=== PATIENT | female | born 1955 | race Caucasian/White ===

== ENCOUNTER → 2016-12-05 | Outpatient (CLI) | payer OTHER ==
--- NOTE | 2016-12-05 13:05 | MM ---
Reason for exam: follow-up at short interval from prior study. Last mammogram was performed 7 months ago. History: Patient is postmenopausal. Family history of breast cancer in aunt at age 54, breast cancer in grandmother at age 60, and breast cancer in aunt at age 50. Physical Findings: Nurse did not find any significant physical abnormalities on exam. MG Diagnostic Mammo RT w CAD CC and MLO view(s) were taken of the right breast. Prior study comparison: April 25, 2016, right breast MG work up mamm w CAD RT. April 23, 2016, bilateral MG screening mammo w CAD. There are scattered fibroglandular densities. There is no discrete abnormality. No significant new findings when compared with previous films. These results were verbally communicated with the patient and result sheet given to the patient on 12/05/16. ASSESSMENT: Negative, BI-RAD 1 RECOMMENDATION: Return to routine screening mammogram schedule for both breasts. Back on schedule 2016.
== END ==
LOC: RADMAMWWP 11:05
PROVIDERS: ATTEND Family Medicine Addiction Medicine
DX: R92.8 Other abnormal and inconclusive findings on diagnostic imaging of breast (principal)

== ENCOUNTER → 2020-12-04 | Outpatient (CLI) | payer OTHER ==
--- NOTE | 2020-12-05 10:30 | MM ---
Reason for exam: additional evaluation requested from prior study. Last mammogram was performed 4 years ago. History: Patient is postmenopausal. Family history of breast cancer in aunt at age 54, breast cancer in grandmother at age 60, and breast cancer in aunt at age 50. Took hormonal contraceptives for 5 years beginning at age 20. Physical Findings: Nurse did not find any significant physical abnormalities on exam. MG 3D Diag Mammo W/Cad OJ Bilateral CC and MLO view(s) were taken. Prior study comparison: December 05, 2016, right breast MG diagnostic mammo RT w CAD. April 25, 2016, right breast MG work up mamm w CAD RT. The breast tissue is heterogeneously dense. This may lower the sensitivity of mammography. Benign calcifications. There is chronic nodularity in the right breast, stable. These results were verbally communicated with the patient and result sheet given to the patient on 12/04/20. ASSESSMENT: Benign, BI-RAD 2 RECOMMENDATION: Routine screening mammogram of both breasts in 1 year.
--- NOTE | 2020-12-05 10:32 | USB ---
Reason for exam: clinical finding. History: Patient is postmenopausal. Family history of breast cancer in aunt at age 54, breast cancer in grandmother at age 60, and breast cancer in aunt at age 50. Took hormonal contraceptives for 5 years beginning at age 20. US Breast Limited LT Left limited breast ultrasound including focal area of concern, retroareolar and axilla demonstrates no cystic or solid lesion seen. These results were verbally communicated with the patient and result sheet given to the patient on 12/04/20. ASSESSMENT: Benign, BI-RAD 2 RECOMMENDATION: Routine screening mammogram of both breasts in 1 year. Manage patient on a clinical basis.
== END | disposition home or self-care (01) ==
LOC: RADMAMWWP 14:35
PROVIDERS: ATTEND Family Medicine Addiction Medicine
DX: R92.2 Inconclusive mammogram (principal); R92.1 Mammographic calcification found on diagnostic imaging of breast
CPT/HCPCS: 77066; 76642; G0279; 77062

== ENCOUNTER → 2021-12-19 | Outpatient (CLI) | payer MEDICARE, OTHER ==
--- NOTE | 2021-12-19 14:05 | XR ---
EXAMINATION TYPE: XR chest 2V DATE OF EXAM: 12/19/2021 COMPARISON: 09/29/2015 INDICATION: Presurgical clearance TECHNIQUE: Frontal and lateral views of the chest are obtained. FINDINGS: The heart size is normal. The pulmonary vasculature is normal. The lungs are clear. IMPRESSION: 1. No acute pulmonary process.
[2021-12-19 16:28] LABS: Partial Thromboplastin Time 22.6 sec (22.0-30.0); Prothrombin Time 10.6 sec (9.0-12.0)
[2021-12-19 22:22] LABS: Basophils # (A) 0.03 X 10*3/uL (0.00-0.10); Basophils % (A) 0.4 %; Eosinophils # (A) 0.03 X 10*3/uL (0.04-0.35); Eosinophils % (A) 0.4 %; HCT 37.4 % (37.2-46.3); HGB 12.1 g/dL (12.0-15.0); Immature Grans, Automated 0.4 %; Lymphocytes # (A) 1.71 X 10*3/uL (0.90-5.00); Lymphocytes % (A) 24.3 %; MCH 29.5 pg (27.0-32.0); MCHC 32.4 g/dL (32.0-37.0); MCV 91.2 fL (80.0-97.0); Mean Platelet Volume 10.9 fL (9.5-12.2); Monocytes # (A) 0.56 X 10*3/uL (0.20-1.00); NRBC Per 100 WBC 0 /100 WBCS (0.0-0.0); Neutrophils # (A) 4.68 X 10*3/uL (1.80-7.70); Neutrophils % (A) 66.5 %; Platelet Count 204 X 10*3/uL (140-440); RDW 14.3 % (11.5-14.5); WBC 7.04 X 10*3/uL (4.50-10.00)
[2021-12-19 22:33] LABS: African American GFR (CKD) 104.6 (60.0-200.0); Anion Gap 12.2 mmol/L (10.00-18.00); BUN/Creat Ratio 20.29 Ratio (12.00-20.00); Blood Urea Nitrogen 14.2 mg/dL (9.0-27.0); Calcium 9.5 mg/dL (8.7-10.3); Carbon Dioxide 22.8 mmol/L (20.0-27.5); Non-African American GFR(CKD) 90.3 (60.0-200.0); Potassium 3.9 mmol/L (3.5-5.5)
[2021-12-19 23:16] LABS: Appearance,Urine Clear (Clear); Bilirubin,Urine Negative (Negative); Blood,Urine Moderate (Negative); Color,Urine Yellow (Yellow); Ketones,Urine Negative (Negative); Nitrite,Urine Negative (Negative); PH, Urine 5.5 (5.0-8.0); Specific Gravity,Urine 1.012 (1.001-1.030); Urobilinogen,Urine 0.2 (0.2,1.0)
[2021-12-19 23:48] LABS: Bacteria,Urine None Seen /HPF (None Seen)
== END | disposition home or self-care (01) ==
LOC: LABPAT 13:34
PROVIDERS: ATTEND Orthopaedic Surgery Orthopaedic Surgery of the Spine
DX: Z01.812 Encounter for preprocedural laboratory examination (principal); L55.1 Sunburn of second degree
CPT/HCPCS: 36415; 71046; 80048; 81001; 85025; 85610; 85730; 87070; 93005

== ENCOUNTER 2021-12-26 09:02 | Observation (INO) | payer MEDICARE, OTHER ==
[2021-12-25 12:21] VITALS: BMI 25.6
[~2021-12-26 09:02] MED LIST: LIDOCAINE 1% (10MG/ML) FOR IV START INTRADERMA PRN; ONDANSETRON 4 MG/2 ML VIAL IVP ONE; ceFAZolin 1,000 MG in SODIUM CHLORIDE 0.9% IRRIGATIO 1,000 ML IRRIGATION PRN; fentaNYL (PF) 50 MCG/ML 2 ML AMP IV PRN
[2021-12-26] MEDS: LACTATED RINGERS 1,000 ML IV SCH (10:15)
[2021-12-26] MEDS ORDERED: ROCURONIUM 10 MG/ML (5 ML VIAL) IV ONE (10:52)
[2021-12-26] MEDS ORDERED: KETAMINE 10 MG/ML 20 ML VIAL ONE (10:52)
[2021-12-26] MEDS ORDERED: WATER FOR INJECTION, STERILE 10 ML VIAL IV ONE (10:52)
[2021-12-26] MEDS ORDERED: fentaNYL (PF) 50 MCG/ML 2 ML AMP ONE (10:52)
[2021-12-26] MEDS ORDERED: HYDROmorphone (PF) 1 MG/ML ONE (10:52)
[2021-12-26] MEDS ORDERED: ePHEDrine 50 MG/ML 1 ML VIAL ONE (10:52)
[2021-12-26] MEDS ORDERED: LIDOCAINE 2% INJ 20 MG/ML (2 ML VIAL) ONE (10:52)
[2021-12-26] MEDS ORDERED: PROPOFOL 10 MG/ML 20 ML VIAL IV ONE (10:52)
[2021-12-26] MEDS ORDERED: GLYCOPYRROLATE 0.2 MG/ML 2 ML VIAL ONE (10:52)
[2021-12-26] MEDS ORDERED: NEOSTIGMINE 1 MG/ML 10 ML VIAL ONE (10:52)
[2021-12-26] MEDS ORDERED: SUCCINYLCHOLINE CHLORIDE 100 MG/5 ML SYR IV ONE (10:52)
[2021-12-26] MEDS ORDERED: MIDAZOLAM 2 MG/2 ML VIAL ONE (10:52)
[2021-12-26] MEDS ORDERED: THROMBIN (BOVINE) 5,000 UNIT VIAL TOPICAL ONE (10:59)
[2021-12-26] MEDS ORDERED: GELATIN SPONGE,ABSORB (LARGE) 1 EACH SPONGE TOPICAL ONE (10:59)
[2021-12-26] MEDS ORDERED: LIDOCAINE 0.5%-EPI 1:200,000 50 ML VIAL SQ ONE (10:59)
[2021-12-26] MEDS ORDERED: LACTATED RINGERS 1,000 ML IV ONE (13:42)
[2021-12-26] MEDS ORDERED: fentaNYL (PF) 50 MCG/ML 2 ML AMP IVP ONE ×2 (14:13→14:36)
[2021-12-26] MEDS ORDERED: MIDAZOLAM 2 MG/2 ML VIAL IVP ONE ×2 (14:14→14:36)
[2021-12-26] MEDS ORDERED: BENZOCAINE/MENTHOL LOZENG 1 EACH LOZENGE MUCOUS MEM PRN (14:14)
[2021-12-26] MEDS ORDERED: HYDROmorphone 0.5 MG/0.5 ML SYRINGE IVP PRN (14:14)
[2021-12-26] MEDS ORDERED: SENNOSIDES-DOCUSATE SODIUM 1 EACH TAB PO PRN (14:15)
[2021-12-26] MEDS ORDERED: ONDANSETRON 4 MG/2 ML VIAL IVP PRN (14:15)
[2021-12-26] MEDS ORDERED: CYCLOBENZAPRINE 10 MG TAB PO PRN (14:15)
--- NOTE | 2021-12-26 14:23 | P.OP ---
Date of Procedure: 12/26/21 Preoperative Diagnosis: Herniated nucleus pulposis L5-S1, listhesis L5-S1, degenerative disc disease, lower extremity radiculopathy, low back pain Postoperative Diagnosis: Same Anesthesia: GETA Pathology: none sent Condition: stable Description of Procedure: DESCRIPTION OF PROCEDURE(S): BRIEF OPERATIVE NOTE Preoperative Diagnosis: Herniated nucleus pulposis L5-S1, listhesis L5-S1, degenerative disc disease, lower extremity radiculopathy, low back pain Postoperative Diagnosis: Same Procedure: Laminectomy and decompression L5-S1 Computer CT navigation aided Minimally invasive Posterior lateral decompression and facet fusion L5-S1 Minimally invasive Transforaminal lumbar interbody fusion for a 360 fusion L5-S1 Discectomy for decompression L5-S1 Placement of interbody graft L5-S1 Use of computer navigation for fusion Local autogenous bone grafting Aspiration of bone marrow from the vertebral body pedicle at L5 on the right Use of bone graft extenders Surgeon: Dr. Donnelly Alarm Signal Operator: Carson HENRIQUEZ who is present throughout the entire the case persistence during positioning, dissection, exposure, visualization, and all crucial elements of the case as well as closure. Anesthesia: General anesthesia per Bob Estimated blood loss: Approximately 200 mL Complications: None apparent Components implanted: K2M minimally invasive [place] pedicle screw system withscrews measuring 6.5 mm in diameter to rods one expandable interbody cage with 10 mL of osteo amp bio4 bone graft substitute and 30 mL of the BX bone fibers to supplement the local autogenous bone graft and bone marrow aspirate Disposition: To recovery room in good stable condition. OPERATIVE INDICATIONS The patient has had severe issues at their lower extremity in her lower back over a significant period with significant worsening over the past several months. Over the past few months the patient had pain at their back and their lower extremities. The patient is having severe radicular symptoms at their lower extremity on the left with weakness. The patient is having significant pain in their back. They are unable to obtain any comfort. She is not have changes at her lumbar spine at L4 5 and L5-S1 with disc herniation at the far lateral disc space of L5-S1 and subtle dynamic listhesis at that level which correlated well with her low back and lower extremity symptoms. We did aggressive conservative treatment with medications therapy and interventional pain management however thery were not having any relief. The patient has been through conservative treatment. We discussed various treatment options including surgery, and the patient wishes to proceed with surgery We discussed the risk, patient's alternatives and benefits of surgery including but not limited to, risk of bleeding risk of infection, risk of need for further kapoor rgery, risk of decreased, loss of motion, muscle function, malunion nonunion, hardware failure, nerve damage, paralysis, heart attack, blindness and . They understood issues with the current pandemic and the possibility of exposure. OPERATIVE SUMMARY After discussing all the risks, patient alternatives and benefits at length, the patient elected to proceed with surgical intervention, signed informed consent, and presented for their procedure. The patient was seen and examined in the preoperative holding area and the surgical site was marked. The patient was given antibiotics and brought to the operating room. The patient was sedated and intubated by anesthesia in standard fashion. The patient was positioned on to the operating room table in a prone position on the appropriate frame which was well-padded and well molded. We were careful to pad any bony prominences and pressure points. We were careful to maintain the patient's cervical spine and good neutral alignment and position throughout. The patient was prepped and draped in a normal standard fashion. An appropriate timeout and keystone protocol performed. We were able to proceed with the surgery. The local wound area was infiltrated with local anesthetic. Over the right iliac crest I was able to make small stab incisions and establish a guidepin screw fixation to the iliac crest 2. I was able place the computer referencing device over the guidepins to establish an appropriate reference point at the right iliac crest for the Ziem CT navigation. We then were able to place patient in an appropriate drape and do a navigation spin for visualization and 3-D reconstruction of the lumbar spine. I was able utilize C-arm guidance and navigation to establish appropriate position over the pedicles bilaterally at the appropriate levels of L5-S1. With the appropriate levels confirmed was able to make small incisions over the appropriate pedicle sites bilaterally. Utilizing the computer navigation device I was able to establish bony landmarks at the right iliac crest for a bony reference point for the navigation device. I was able to establish a Jamshidi needle over the lateral aspect of the pedicle and advanced the trocar into the pedicle being careful not to breech superiorly inferiorly medially or laterally using computer navigation device. Position was confirmed regularly with AP and lateral images on C-arm and with the computer navigation device at the appropriate levels bilaterally. I was able to establish the trocar into the pedicle appropriately into the posterior aspect of the vertebral body bilaterally at the appropriate levels of L5-S1. This was done at each of the pedicle positions and each of the vertebrae. At the superior vertebrae of L5 on the right I was able to take approximately 15 mL of bone aspiration for use later in the case to supplement the allograft and autograft bone. I was able place the guidewire into the trocar and into the vertebral body appropriately under C-arm guidance. Dissection was taken down over the wire to the appropriate starting position for the screw placed. The appropriate length screw was chosen, threaded over the guidewire and screwed appropriately into the pedicle and vertebral body under C-arm guidance in excellent alignment and position with good bony purchase. This is done at each of the screw sites at the appropriate levels.. With the screws intact I extended the incision to connect the screw hole sites on the most symptomatic side on the left. I dissected down to establish access over the pars and lamina to the base of the spinous process. I was able to expose the facet joint. The capsule the facet was taken down and showed some facet arthrosis at the joint. I was able to use a combination of curettes and Kerrison rongeurs and a high-speed drill to take down the facet joint and do a facetectomy. I was able get excellent foraminal decompression and central decompression with undermining across midline to perform a laminectomy centrally and contralaterally. I was able get good central decompression. The ligamentum flavum was taken down to further decompress centrally and at bilateral neural f oramen. I was able to expose the disc space and visualize the traversing nerve root. Note was made of some disc protrusion and disc herniation that was abutting the traversing nerve root at the level causing further compression of the nerve root on the left side. I was able to establish a annulotomy at the appropriate level protecting soft tissue and neural structures. Note was made of some disc desiccation at the disc. I performed a complete discectomy with accommodation of curettes and rasps and scrapers. I was able get good endplate preparation at the disc space. I sized for the appropriate size interbody spacer protecting the soft tissue and neural structures. The wound was copiously irrigated and suctioned dry. There is no evidence of any dural tear or leak. I was able to pack the disc space with local autogenous bone graft as well as a small amount of bone graft which was also placed into the interbody cage itself. Protecting the soft tissue structures and neural structures I was able place the interbody cage in good alignment and good position. As able explanted over the interspace under C-arm guidance with good fit and fill at the interbody space. Position was confirmed with C-arm guidance. Good hemostasis maintained. There is no evidence of any dural tear or leak. The wound was irrigated and suctioned dry. With the hardware intact, intraoperative C-arm imaging was again taken which showed good alignment and position of the hardware at the appropriate levels at L5 and S1. We were then able to measure, contour and place the rods and appropriate hardware bilaterally. I was able to place capcrews, tighten them down, and torque them with the torque screwdriver appropriately. With this intact I was able to place the local autogenous bone graft with additional bone graft enhancer as necessary into the posterior lateral gutters over the decorticated transverse processes and facet joints on the contralateral side. The remainder of the bone graft was placed over the facet joint on the contralateral side after taking down the facet joint capsule. With the bone graft intact, a stable construct, and good decompression at the appropriate levels, we were able to proceed with closure. Good hemostasis was maintained. There is no evidence of dural tear or leak. The fascia was closed for a watertight closure. he subcuticular tissue was closed with absorbable suture. The wound was cleaned and dried and dressed with the appropriate dressing. The drapes were broken down. The patient was gently rolled back onto their hospital bed being careful to maintain their cervical spine and good neutral alignment and position. They were woken up by anesthesia, extubated, and brought to the recovery room in good stable condition. The patient will be admitted to the hospital for appropriate postoperative care, medical management and monitoring. We will continue to follow them closely about the postoperative course.
[2021-12-26] MEDS: oxyCODONE-APAP 10-325MG 1 EACH TAB PO PRN (15:42)
[2021-12-26] MEDS: SODIUM CHLORIDE 0.9% 1,000 ML IV SCH ×2 (16:00→22:08)
--- NOTE | 2021-12-26 16:15 | FL ---
Fluoroscopy INDICATION: Pain FINDINGS: Fluoroscopy time: 20 seconds. Images obtained: 5. IMPRESSIONS: 1. Documentation of fluoroscopy.
--- NOTE | 2021-12-26 16:15 | XR ---
Fluoroscopy INDICATION: Pain FINDINGS: Fluoroscopy time: 20 seconds. Images obtained: 0. IMPRESSIONS: 1. Documentation of fluoroscopy.
[2021-12-26] MEDS: HYDROmorphone 1 MG/ML 1 ML SYRINGE IVP PRN ×2 (17:51→22:09)
[2021-12-26] MEDS: QUEtiapine 50 MG TAB PO SCH (20:37)
[2021-12-26] MEDS: HYDROcodone/APAP 5-325MG 1 EACH TAB PO PRN (20:38)
[2021-12-27] MEDS: HYDROmorphone 1 MG/ML 1 ML SYRINGE IVP PRN ×3 (04:10→19:06)
[2021-12-27] MEDS: oxyCODONE-APAP 10-325MG 1 EACH TAB PO PRN ×2 (05:07→20:43)
[2021-12-27] MEDS: LACTATED RINGERS 1,000 ML IV SCH (05:22)
[2021-12-27] MEDS: SODIUM CHLORIDE 0.9% 1,000 ML IV SCH ×2 (09:23→17:41)
--- NOTE | 2021-12-27 10:00 | P.PN ---
Progress Note - Text Progress Note Date: 12/27/21 Postoperative day #1 Patient is seen and examined today at bedside. The patient has some pain around the surgical site as expected. Pain is being controlled with medication. Physical Exam Afebrile with stable vital signs Abdomen is soft nontender. Chest has good excursion deep and space expiration The incision site is clean dry and intact. No erythema there is no purulence. Extremities have not had neurologic change from prior to surgery. Calves and thighs were soft nontender without evidence of DVT. Assessment/Plan Postoperative day #1 status post minimally invasive decompression fusion L5-S1 for disc herniation with listhesis Patient is progressing as expected from the surgery. Her legs are doing well and she has been able to be mobile. We will have to discontinue her Clements today and do dry dressing change for her We will continue to increase the patient's mobilization with therapy. We will continue pain control with oral or IV medications. We'll continue to follow patient closely.
[2021-12-27 10:44] LABS: Basophils # (A) 0.02 X 10*3/uL (0.00-0.10); Basophils % (A) 0.2 %; Eosinophils # (A) 0.01 X 10*3/uL (0.04-0.35); Eosinophils % (A) 0.1 %; HGB 9.8 g/dL (12.0-15.0); Immature Grans, Automated 0.5 %; Lymphocytes # (A) 0.72 X 10*3/uL (0.90-5.00); Lymphocytes % (A) 7.3 %; MCH 29.8 pg (27.0-32.0); MCHC 31.6 g/dL (32.0-37.0); MCV 94.2 fL (80.0-97.0); Mean Platelet Volume 10.9 fL (9.5-12.2); Monocytes # (A) 0.92 X 10*3/uL (0.20-1.00); Monocytes % (A) 9.3 %; NRBC Per 100 WBC 0 /100 WBCS (0.0-0.0); Neutrophils # (A) 8.16 X 10*3/uL (1.80-7.70); Neutrophils % (A) 82.6 %; Platelet Count 143 X 10*3/uL (140-440); RBC 3.29 X 10*6/uL (4.10-5.20); RDW 14.6 % (11.5-14.5); WBC 9.88 X 10*3/uL (4.50-10.00)
[2021-12-27] MEDS ORDERED: HYDROmorphone 1 MG/ML 1 ML SYRINGE ONE (12:10)
[2021-12-27] MEDS ORDERED: oxyCODONE-APAP 10-325MG 1 EACH TAB ONE (12:10)
[2021-12-27 15:02] LABS: African American GFR (CKD) 104.6 (60.0-200.0); Anion Gap 13.3 mmol/L (10.00-18.00); BUN/Creat Ratio 19.43 Ratio (12.00-20.00); Blood Urea Nitrogen 13.6 mg/dL (9.0-27.0); Calcium 8.7 mg/dL (8.7-10.3); Carbon Dioxide 22.7 mmol/L (20.0-27.5); Non-African American GFR(CKD) 90.3 (60.0-200.0); Potassium 3.9 mmol/L (3.5-5.5)
[2021-12-27] MEDS: QUEtiapine 50 MG TAB PO SCH (20:43)
[2021-12-27 21:12] VITALS: RESP 16
[2021-12-28] MEDS: SODIUM CHLORIDE 0.9% 1,000 ML IV SCH (00:18)
[2021-12-28] MEDS: HYDROmorphone 1 MG/ML 1 ML SYRINGE IVP PRN (00:19)
[2021-12-28 04:31] VITALS: BP 133/66; PULSE 91; TEMP 98.9
[2021-12-28] MEDS: oxyCODONE-APAP 10-325MG 1 EACH TAB PO PRN (06:02)
[2021-12-28] MEDS: LACTATED RINGERS 1,000 ML IV SCH (08:26)
--- NOTE | 2021-12-28 08:38 | P.DS ---
Providers Date of admission: 12/26/21 22:30 Expected date of discharge: 12/28/21 Attending physician: Renan Donnelly Primary care physician: Jordan Herrera - Discharge Diagnosis(es) (1) Spondylolisthesis at L5-S1 level Current Visit: Yes Status: Acute (2) Herniated nucleus pulposus, L5-S1 Current Visit: Yes Status: Acute (3) DJD (degenerative joint disease), lumbosacral Current Visit: Yes Status: Acute (4) Low back pain Current Visit: Yes Status: Acute (5) Lumbar back pain with radiculopathy affecting left lower extremity Current Visit: Yes Status: Acute (6) Hypertension Current Visit: Yes Status: Acute (7) Depression Current Visit: Yes Status: Acute (8) Unsteady gait Current Visit: Yes Status: Acute (9) Status post lumbar spinal arthrodesis Current Visit: Yes Status: Acute Hospital Course: This is a pleasant 66-year-old female who presented with L5-S1 spondylolisthesis and herniated nucleus pulposus, lumbosacral degenerative disc disease, low back pain, and lower extremity radiculopathy who failed outpatient conservative therapy. She was admitted for an L5-S1 minimally invasive posterior lateral decompression and fusion with transforaminal lumbar interbody fusion. She feels her low back pain is adequately controlled. She does continue to have some left lower extremity radiculopathy down the posterior thigh and calf most significant with standing on her left lower extremity. The patient tolerated the procedure and is doing okay postoperatively. She has been able to mobilize to the restroom independently. Her Clements catheter was discontinued this morning. She has been able to void on her own. She feels she is ready for discharge today. Condition on day of discharge stable. Patient will be discharged home. Patient was cleared preoperatively for surgery by Dr. Herrera. Patient currently denies any nausea, vomiting, fever, or chills. Patient is eating and voiding freely without difficulty. Patient may shower with tegaderm dressing intact. Patient may remove Tegaderm dressing in 3 days and shower without a dressing at that time. Patient should refrain from driving until at least after their first follow-up appointment in the office. Patient should avoid excessive bending, lifting, and twisting; no lifting greater than 10 pounds. Patient states she has a walker at home. She may use his walker to aid in ambulation as needed. MAPS has been reviewed today, 12/28/2021, with an Overall Overdose Risk Score of . An "Opiod Start Talking" Form has been signed and placed in the patient's chart. A prescription has been written for hydrocodone 5 mg/325 mg 1 every 6 hours as needed for pain, dispense #28. Patient has been taking this medication during her admission to the hospital without difficulty. She is also given a prescription for cyclobenzaprine 10 mg 1 tab 3 times a day as needed for muscle spasm, dispensed #60. These prescriptions were sent to the [facility] pharmacy located within [facility] per request of the patient. Patient is prescribed Percocet 10 mg/325 mg 1 tab every 6 hours as needed for pain in the outpatient setting for her chronic pain. She may continue with his medication as prescribed by another provider as needed for pain control. She has been taking Percocet 10 mg/325 mg and hydrocodone 5 mg/325 mg for postoperative pain control during her admission without any significant difficulty. Patient should avoid anti-inflammatory medication over the next 6 weeks postoperatively. Patient's other medical diagnoses include hypertension, depression, and unsteady gait. Physical Exam on day of discharge: Patient is awake, alert, and oriented 3 Vital signs stable Good chest excursion with deep inspiration and expiration Abdomen soft nontender No signs or symptoms of DVT; no calf pain; calves are soft bilaterally Extensor hallucis longus, plantarflexion, and dorsiflexion positive sustained bilateral lower extremities Surgical sites are clean, dry, and intact; no erythema, purulence, or signs of infection Evidence of some small bruising over the right iliac crest Tegaderm dressing intact for the surgical sites at the lumbosacral spine and over the right iliac crest Neurovascular intact bilateral lower extremities Procedures: L5-S1 minimally invasive posterior lateral decompression and fusion with transforaminal lumbar interbody fusion Patient Condition at Discharge: Stable Plan - Discharge Summary Discharge Rx Participant: No New Discharge Prescriptions: New HYDROcodone/APAP 5-325MG [[place] 5] 1 each PO Q6HR PRN #28 tab PRN Reason: Pain Cyclobenzaprine [Flexeril] 10 mg PO TID PRN #60 tab PRN Reason: Muscle Spasm No Action QUEtiapine [SEROquel] 150 mg PO HS #21 tab oxyCODONE-APAP 10-325MG [Percocet 10-325 mg] 1 tab PO Q6HR PRN PRN Reason: Pain Discharge Medication List QUEtiapine [SEROquel] 150 mg PO HS #21 tab 10/06/15 [Rx] oxyCODONE-APAP 10-325MG [Percocet 10-325 mg] 1 tab PO Q6HR PRN 12/25/21 [History] Cyclobenzaprine [Flexeril] 10 mg PO TID PRN #60 tab 12/28/21 [Rx] HYDROcodone/APAP 5-325MG [[place] 5] 1 each PO Q6HR PRN #28 tab 12/28/21 [Rx] Follow up Appointment(s)/Referral(s): Carson Bone, GALLITO [PHYSICIAN RISK CONTROL ANALYST] - 2 Weeks (Patient may follow-up with Carson Bone PA-C or Dr. Lucas Donnelly at [facility] in 2-3 weeks following discharge. ) Activity/Diet/Wound Care/Special Instructions: 1. Patient may shower with Tegaderm dressing intact. 2. Patient may remove Tegaderm dressing in 3 days and shower without a dressing at that time. 3. Patient should refrain from driving until at least after their first follow- up appointment in the office. 4. Patient should avoid excessive bending, twisting, lifting; avoid overhead lifting; no lifting greater than 10 pounds 5. Patient may use a walker to aid in ambulation as needed; patient has a walker at home 6. Take medications as prescribed 7. Patient should avoid anti-inflammatory medications over the next 6 weeks postoperatively 8. Do not soak in tub Discharge Disposition: HOME SELF-CARE
[2021-12-28] MEDS: HYDROcodone/APAP 5-325MG 1 EACH TAB PO PRN (09:29)
== END 2021-12-28 11:17 | disposition home or self-care (01) ==
LOC: OR 09:02 → 5NMEDONC 15:01 → OR 22:30
PROVIDERS: ADMIT Orthopaedic Surgery Orthopaedic Surgery of the Spine; ATTEND Orthopaedic Surgery Orthopaedic Surgery of the Spine
DX: M51.17 Intervertebral disc disorders with radiculopathy, lumbosacral region (principal); M51.16 Intervertebral disc disorders with radiculopathy, lumbar region; I10 Essential (primary) hypertension; F32.A Depression, unspecified; R26.81 Unsteadiness on feet; R63.5 Abnormal weight gain; Z82.49 Family history of ischemic heart disease and other diseases of the circulatory system; Z97.3 Presence of spectacles and contact lenses; Z90.710 Acquired absence of both cervix and uterus; Z98.890 Other specified postprocedural states; F17.210 Nicotine dependence, cigarettes, uncomplicated; F41.9 Anxiety disorder, unspecified; Z86.19 Personal history of other infectious and parasitic diseases; Z98.51 Tubal ligation status; R20.0 Anesthesia of skin; R20.2 Paresthesia of skin; G89.29 Other chronic pain; Z79.891 Long term (current) use of opiate analgesic; Z79.899 Other long term (current) drug therapy; Z88.6 Allergy status to analgesic agent; Z88.5 Allergy status to narcotic agent; Z91.030 Bee allergy status
CPT/HCPCS: 97116; 97162; 86900; 86901; 80048; 85025; 86850; 72100; 22630; 20939; 20931; 20938; G0378 ×3; C1713 ×2; C1762; J2250; J2710; J0690 ×3; J2405; J3010; J1170 ×3; J0330; J2704; J2001

== ENCOUNTER 2023-03-10 13:43 | Emergency (ER) | payer MEDICARE, OTHER ==
[2023-03-10 13:49] VITALS: TEMP 98.5
[2023-03-10] MEDS ORDERED: KETOROLAC 15 MG/ML 1 ML VIAL IVP STA (15:02)
[2023-03-10] MEDS ORDERED: fentaNYL (PF) 50 MCG/ML 2 ML AMP IVP STA ×2 (15:03→17:15)
--- NOTE | 2023-03-10 15:23 | ED ---
General Adult HPI - General Chief complaint: Fall Stated complaint: Fall-back pain Time Seen by Provider: 03/10/23 14:20 Source: patient Mode of arrival: wheelchair - History of Present Illness Initial comments: This is a 67-year-old female no past medical history presents emergency department after a mechanical fall last night at 10 PM. The patient stated that she tripped over the dog's, landing on her buttocks. The patient stated that she had pain to the tailbone and pain in the bilateral hips and lower back that began last night but was somewhat relieved by ibuprofen and Aleve. The patient stated that she continued pain and discomfort today that became worse so she came to the emergency department for evaluation. The patient describes the pain as going "across her lower stomach as well as her right hip and all over her lower back." The patient denied hitting her head and denied losing consciousness. The patient was able to move her extremities without any acute distress however did have pain with movement in the bed. The patient denied any numbness or tingling as well as any bowel or bladder incontinence. - Related Data Home Medications Medication Instructions Recorded Confirmed Baclofen [Lioresal] 20 mg PO BID 03/10/23 03/10/23 Lactulose [Constulose] 10 gm PO DAILY PRN 03/10/23 03/10/23 Vortioxetine Hydrobromide 10 mg PO HS 03/10/23 03/10/23 [Trintellix] buprenorphine HCL [Belbuca] 750 mcg BUCCAL BID 03/10/23 03/10/23 clonazePAM [Klonopin] 0.5 mg PO HS 03/10/23 03/10/23 Previous Rx's Medication Instructions Recorded HYDROcodone/APAP 10-325MG [[place] 1 tab PO Q6HR PRN 3 Days #12 tab 03/10/23 10-325] Ondansetron Odt [Zofran Odt] 4 mg PO Q8HR PRN #30 tab 03/10/23 Allergies Allergy/AdvReac Type Severity Reaction Status Date / Time acetaminophen Allergy Vomiting,abdominal Verified 03/10/23 17:10 [From Tylenol-Codeine #3] cramping codeine phosphate Allergy Vomiting,abdominal Verified 03/10/23 17:10 [From Tylenol-Codeine #3] cramping ibuprofen [From Motrin] Allergy Vomiting,abdominal Verified 03/10/23 17:10 cramping venom-honey bee Allergy Anaphylaxis Verified 03/10/23 17:10 [bee venom (honey bee)] Review of Systems ROS Statement: Those systems with pertinent positive or pertinent negative responses have been documented in the HPI. ROS Other: All systems not noted in ROS Statement are negative. Past Medical History Past Medical History: Liver Disease Additional Past Medical History / Comment(s): Hepatits C-treated 5 or 6yrs ago , insomnia History of Any Multi-Drug Resistant Organisms: MRSA Date of last positivie culture/infection: 2010 MDRO Source:: skin from cat bite Past Surgical History: Hysterectomy, Orthopedic Surgery, Tubal Ligation Additional Past Surgical History / Comment(s): hand surgery,partical hysterectomy Past Anesthesia/Blood Transfusion Reactions: No Reported Reaction Additional Past Anesthesia/Blood Transfusion Reaction / Comment(s): no hx blood transfusion Past Psychological History: Anxiety, Depression Smoking Status: Current every day smoker - Past Family History Brother(s) Additional Family Medical History / Comment(s): Patient has 6 brothers with no known medical problems per the patient. Sister(s) Additional Family Medical History / Comment(s): Patient has 4 sisters with no m ajor medical problems. She has no children. Father Additional Family Medical History / Comment(s): bipolar Mother Family Medical History: Cancer Additional Family Medical History / Comment(s): Mother in her 70s from some type of cancer that was unknown to the patient. General Exam Limitations: no limitations General appearance: alert, in distress (Mild distress 2/2 to pain) Head exam: Present: atraumatic, normocephalic, normal inspection Eye exam: Present: normal appearance, PERRL Pupils: Present: normal accommodation ENT exam: Present: normal exam, normal oropharynx, mucous membranes moist Neck exam: Present: normal inspection, full ROM Respiratory exam: Present: normal lung sounds bilaterally Cardiovascular Exam: Present: regular rate, normal rhythm, normal heart sounds GI/Abdominal exam: Present: soft, tenderness (Mild TTP across the bilateral lower abdomen), normal bowel sounds Extremities exam: Present: normal inspection, tenderness (TTP over the right lateral hip) Back exam: Present: normal inspection, tenderness (TTP over the lumbar spine) Neurological exam: Present: alert, oriented X3, CN II-XII intact Psychiatric exam: Present: normal affect, normal mood Skin exam: Present: warm, dry Course Vital Signs 03/10/23 03/10/23 13:47 17:10 Temperature 98.5 F Pulse Rate 87 74 Respiratory 16 18 Rate Blood Pressure 150/73 143/85 O2 Sat by Pulse 97 99 Oximetry Medical Decision Making - Medical Decision Making Was pt. sent in by a medical professional or institution (, [facility], LAMP INSPECTOR, urgent care, hospital, or [facility]...) When possible be specific @ -No Did you speak to anyone other than the patient for history (EMS, parent, family, police, friend...)? What history was obtained from this source @ -No Did you review nursing and triage notes (agree or disagree)? Why? @ -I reviewed and agree with nursing and triage notes Were old charts reviewed (outside hosp., previous admission, EMS record, old EKG, old radiological studies, urgent care reports/EKG's, [facility] records)? Report findings @ -No old charts were reviewed Differential Diagnosis (chest pain, altered mental status, abdominal pain women, abdominal pain men, vaginal bleeding, weakness, fever, dyspnea, syncope, headache, dizziness, GI bleed, back pain, seizure, CVA, palpatations, mental health)? @ -Acute hip fracture, right hip contusion, coccyx fracture, lumbar spine fracture, muscle strain EKG interpreted by me (3pts min.). @ -None X-rays interpreted by me (1pt min.). @ -None done CT interpreted by me (1pt min.). @ -CT abdomen and pelvis, hips CT and lumbar spine CT were obtained and were interpreted by myself showing an acute compression fracture of L2 vertebral body with less than 25% height loss and no evidence for significant spinal canal or neural foraminal stenosis. There was no evidence for acute intra-abdominal process. There was a moderate right hip osteoarthritis however there is no evidence for right hip fracture. U/S interpreted by me (1pt. min.). @ -None done What testing was considered but not performed or refused? (CT, X-rays, U/S, labs)? Why? @ -None What meds were considered but not given or refused? Why? @ -None Did you discuss the management of the patient with other professionals (professionals i.e. , [facility], LAMP INSPECTOR, lab, RT, psych nurse, social insurance administrator, supervisor pumping, teacher, training officer, case managers)? Give summary @ -Yes,Dr. Kamara was consulted but stated that he did not have spine privileges and therefore needed to contact Dr. Donnelly. Dr. Donnelly was contacted and stated the patient could be seen in the office with these findings and he did recommend an LSO brace. Was smoking cessation discussed for >3mins.? @ -No Was critical care preformed (if so, how long)? @ -No Were there social determinants of health that impacted care today? How? (Homelessness, low income, unemployed, alcoholism, drug addiction, dai sportation, low edu. Level, literacy, decrease access to med. care, longterm, rehab)? @ -No Was there de-escalation of care discussed even if they declined (Discuss DNR or withdrawal of care, Hospice)? DNR status @ -No What co-morbidities impacted this encounter? (DM, HTN, Smoking, COPD, CAD, Cancer, CVA, ARF, Chemo, Hep., AIDS, mental health diagnosis, sleep apnea, morbid obesity)? @ -Multiple back surgeries Was patient admitted / discharged? Hospital course, mention meds given and [place], prescriptions, significant lab abnormalities, going to OR and other pertinent info. @ -The patient was seen and evaluated emergency department. Physical exam, the patient was resting in bed without any acute distress at patient did have some minor tenderness to palpation of the lumbar spine that was worse with movement. The patient was able to rest comfortably in bed however. Imaging was obtained and all totally showed an L2 compression fracture of the vertebral body with less than 25% height loss. Due to this, or thick surgery was contacted and did recommend the patient could be discharged home with an LSO brace. I provided the patient with a prescription for this. The patient was also given a prescription for [place] for pain control. The patient did state that she gets minor nausea with this medication therefore was also given Zofran. The patient was agreeable to this plan was able to inflate in the emergency department without any acute assistance. The patient was discharged home in stable condition with instruction to follow-up with orthopedic surgery in the next 1-2 days. Undiagnosed new problem with uncertain prognosis? @ -No Drug Therapy requiring intensive monitoring for toxicity (Heparin, Nitro, Insulin, Cardizem)? @ -No Were any procedures done? @ -No Diagnosis/symptom? @ -Fall, L2 compression fracture with less than 25% height loss Acute, or Chronic, or Acute on Chronic? @ -Acute Uncomplicated (without systemic symptoms) or Complicated (systemic symptoms)? @ -Uncomplicated Side effects of treatment? @ -No Exacerbation, Progression, or Severe Exacerbation? @ -No Poses a threat to life or bodily function? How? (Chest pain, [place], CA, pneumonia, PE, COPD, DKA, ARF, appy, cholecystitis, CVA, Diverticulitis, Homicidal, Suicidal, threat to staff... and all critical care pts) @ -No - Lab Data Result diagrams: 03/10/23 15:23 03/10/23 15:23 Lab Results 03/10/23 03/10/23 03/10/23 Range/Units 15:23 15:23 16:34 WBC 9.2 (3.8-10.6) k/uL RBC 4.48 (3.80-5.40) m/uL Hgb 13.3 (11.4-16.0) gm/dL Hct 39.7 (34.0-46.0) % MCV 88.8 (80.0-100.0) fL MCH 29.7 (25.0-35.0) pg MCHC 33.5 (31.0-37.0) g/dL RDW 13.6 (11.5-15.5) % Plt Count 179 (150-450) k/uL MPV 7.4 Neutrophils % 67 % Lymphocytes % 23 % Monocytes % 7 % Eosinophils % 1 % Basophils % 0 % Neutrophils # 6.2 (1.3-7.7) k/uL Lymphocytes # 2.1 (1.0-4.8) k/uL Monocytes # 0.7 (0-1.0) k/uL Eosinophils # 0.1 (0-0.7) k/uL Basophils # 0.0 (0-0.2) k/uL Sodium 137 (137-145) mmol/L Potassium 3.6 (3.5-5.1) mmol/L Chloride 100 (98-107) mmol/L Carbon Dioxide 26 (22-30) mmol/L Anion Gap 11 mmol/L BUN 18 H (7-17) mg/dL Creatinine 0.79 (0.52-1.04) mg/dL Est GFR (CKD-EPI)AfAm >90 (>60 ml/min/1.73 sqM) Est GFR (CKD-EPI)NonAf 78 (>60 ml/min/1.73 sqM) Glucose 92 (74-99) mg/dL Calcium 9.5 (8.4-10.2) mg/dL Total Bilirubin 0.6 (0.2-1.3) mg/dL AST 32 (14-36) U/L ALT 21 (4-34) U/L Alkaline Phosphatase 89 (38-126) U/L Total Protein 8.0 (6.3-8.2) g/dL Albumin 4.6 (3.5-5.0) g/dL Lipase 103 (23-300) U/L Urine Color Light Yellow Urine Appearance Clear (Clear) Urine pH 5.5 (5.0-8.0) Ur Specific [place] 1.033 (1.001-1.035) Urine Protein Negative (Negative) Urine Glucose (UA) Negative (Negative) Urine Ketones Negative (Negative) Urine Blood Small H (Negative) Urine Nitrite Negative (Negative) Urine Bilirubin Negative (Negative) Urine Urobilinogen <2.0 (<2.0) mg/dL Ur Leukocyte Esterase Small H (Negative) Urine RBC 1 (0-5) /hpf Urine WBC 4 (0-5) /hpf Ur Squamous Epith Cells 1 (0-4) /hpf Urine Mucus Rare H (None) /hpf Disposition Clinical Impression: Compression fracture of L2, Fall Disposition: HOME SELF-CARE Condition: Stable Instructions (If sedation given, give patient instructions): Vertebral Compression Fracture (ED) Prescriptions: HYDROcodone/APAP 10-325MG [[place] 10-325] 1 tab PO Q6HR PRN 3 Days #12 tab PRN Reason: Pain Ondansetron Odt [Zofran Odt] 4 mg PO Q8HR PRN #30 tab PRN Reason: Nausea Is patient prescribed a controlled substance at d/c from ED?: No Referrals: Jordan Herrera DO [Primary Care Provider] - 1-2 days Time of Disposition: 18:00
[2023-03-10 15:52] LABS: Basophils % (A) 0 %; Eosinophils # (A) 0.1 k/uL (0-0.7); Eosinophils % (A) 1 %; HCT 39.7 % (34.0-46.0); HGB 13.3 gm/dL (11.4-16.0); Lymphocytes # (A) 2.1 k/uL (1.0-4.8); Lymphocytes % (A) 23 %; MCH 29.7 pg (25.0-35.0); MCHC 33.5 g/dL (31.0-37.0); MCV 88.8 fL (80.0-100.0); Mean Platelet Volume 7.4; Monocytes # (A) 0.7 k/uL (0-1.0); Monocytes % (A) 7 %; Neutrophils # (A) 6.2 k/uL (1.3-7.7); Neutrophils % (A) 67 %; Platelet Count 179 k/uL (150-450); RBC 4.48 m/uL (3.80-5.40); RDW 13.6 % (11.5-15.5); WBC 9.2 k/uL (3.8-10.6)
[2023-03-10 15:55] LABS: ALT 21 U/L (4-34); AST 32 U/L (14-36); African American GFR (CKD) >90 (>60 ml/min/1.73 sqM); Albumin 4.6 g/dL (3.5-5.0); Alkaline Phosphatase 89 U/L (38-126); Anion Gap 11 mmol/L; Blood Urea Nitrogen 18 mg/dL (7-17); Calcium 9.5 mg/dL (8.4-10.2); Carbon Dioxide 26 mmol/L (22-30); Chloride 100 mmol/L (98-107); Glucose 92 mg/dL (74-99); Lipase 103 U/L (23-300); Non-African American GFR(CKD) 78 (>60 ml/min/1.73 sqM); Potassium 3.6 mmol/L (3.5-5.1); Sodium 137 mmol/L (137-145); Total Bilirubin 0.6 mg/dL (0.2-1.3)
--- NOTE | 2023-03-10 16:51 | CT ---
EXAMINATION TYPE: CT abdomen pelvis w con, CT hip RT w con, CT lumbar spine w con CT DLP: combined DLP 1326.7 (accession [id number]), 709.8 (accession [id number]), combined DLP 1326.7 (ac cession [id number]) mGycm, Automated exposure control for dose reduction was used. DATE OF EXAM: 03/10/2023 4:32 PM COMPARISON: None CLINICAL INDICATION:Female, 67 years old with history of Trauma; abdominal pain (accession [id number]), right hip pain following fall (accession [id number]), back pain following fall (accession [id number]) TECHNIQUE: Axial CT of the abdomen and pelvis. Sagittal and coronal reformats were created on a [employer] workstation. Axial imaging of the lumbar spine with sagittal coronal reformats. Axial imaging of the right hip with sagittal coronal reformats. Contrast used:100 mL of Isovue 300 with IV Contrast, (none if empty) Oral contrast used: without Oral Contrast (none if empty) FINDINGS: LOWER CHEST: Left lower lung atelectasis best appreciated on sagittal imaging. ABDOMEN LIVER: And hepatic cysts in the right hepatic lobe dome. GALLBLADDER AND BILE DUCTS: Mild extrahepatic and intrahepatic biliary dilation. PANCREAS: Duct measures up torr near the head SPLEEN: unremarkable. ADRENAL GLANDS: Unremarkable. KIDNEYS AND URETERS: No evidence of hydronephrosis or renal calculus. The ureters are unremarkable. PELVIS BLADDER: Unremarkable REPRODUCTIVE: The uterus is surgically absent. ABDOMEN & PELVIS STOMACH AND BOWEL: No evidence of bowel obstruction. PERITONEUM/RETROPERITONEUM: No evidence of pneumoperitoneum or free fluid. VASCULATURE: Mild atherosclerotic calcifications are present throughout the abdominal aorta and its b ranches. No evidence of aortic aneurysm. MUSCULOSKELETAL: Fixation changes L4 and L5. Discectomy at L4-L5. Hardware appears intact. There is an L2 compression fracture with cortical buckling with less than 25% height loss no retropulsion. No evidence for signi ficant spinal canal neural foraminal stenosis. Additional imaging of the spine demonstrates no evidence for significant spinal canal or neural malathi inal stenosis at multiple levels. Scattered disc bulging worse at L4-L5 with at least mild spinal can al stenosis. There is moderate bilateral L4-L5 and L5-S1 neural foraminal stenosis. Imaging of the right hip demonstrates osteophyte formation of the superior acetabulum of the femoral head. There is no evidence of fracture. Subchondral cystic change along the superior acetabulum with mineralization of the labrum. LYMPH NODES: No gross evidence for lymphadenopathy. SOFT TISSUE/ABDOMINAL WALL: Unremarkable IMPRESSION: Spine: * Acute compression fracture of the L2 vertebral body with less than 25% height loss and no evidence for significant spinal canal or neural foraminal stenosis. No additional fractures visualized. * Moderate bilateral L4-L5 and L5-S1 neural foraminal stenosis. Abdomen: * No evidence for acute intra-abdominal process. * Double duct sign with extrahepatic and central intrahepatic biliary ductal dilation with prominent pancreatic duct. Consider ERCP for ampullary lesion. No obvious mass identified. Right hip: * Moderate right hip osteoarthrosis with chondrocalcinosis of the labrum. * No evidence of right hip fracture.
[2023-03-10 17:10] VITALS: BP 143/85; PULSE 74; RESP 18
[2023-03-10 17:14] LABS: Appearance,Urine Clear (Clear); Bilirubin,Urine Negative (Negative); Blood,Urine Small (Negative); Color,Urine Light Yellow; Glucose,Urine (UA) Negative (Negative); Ketones,Urine Negative (Negative); Leukocyte Esterase,Urine Small (Negative); Mucus,Urine Rare /hpf; Nitrite,Urine Negative (Negative); PH, Urine 5.5 (5.0-8.0); Protein,Urine Negative (Negative); RBC,Urine 1 /hpf (0-5); Specific Gravity,Urine 1.033 (1.001-1.035); Squamous Epithelial Cell,Urine 1 /hpf (0-4); Urobilinogen,Urine <2.0 mg/dL (<2.0); WBC,Urine 4 /hpf (0-5)
== END 2023-03-10 18:58 | disposition home or self-care (01) ==
LOC: EC 13:43
DX: S32.020A Wedge compression fracture of second lumbar vertebra, initial encounter for closed fracture (principal); F41.9 Anxiety disorder, unspecified; F32.A Depression, unspecified; F17.200 Nicotine dependence, unspecified, uncomplicated; Z88.5 Allergy status to narcotic agent; Z88.6 Allergy status to analgesic agent; Z91.030 Bee allergy status; W01.0XXA Fall on same level from slipping, tripping and stumbling without subsequent striking against object, initial encounter
CPT/HCPCS: 36415; 80053; 83690; 85025; 81001; 72132; 74177; 73701; 99284; 96374; 96375; 96376; J3010; J1885; Q9967

== ENCOUNTER → 2023-06-18 | Outpatient (CLI) | payer MEDICARE, OTHER ==
--- NOTE | 2023-06-18 11:35 | XR ---
EXAMINATION TYPE: XR chest 2V DATE OF EXAM: 06/18/2023 COMPARISON: 12/19/2021 INDICATION: Presurgical clearance TECHNIQUE: Frontal and lateral views of the chest are obtained. FINDINGS: The heart size is normal. The pulmonary vasculature is normal. The lungs are clear. IMPRESSION: 1. No acute pulmonary process.
[2023-06-18 13:01] LABS: Partial Thromboplastin Time 22.2 sec (22.0-30.0)
[2023-06-18 15:07] LABS: Prothrombin Time 10.6 sec (10.0-12.5)
[2023-06-18 16:15] LABS: HGB 13.7 g/dL (12.0-15.0); MCH 30.1 pg (27.0-32.0); MCHC 33.4 g/dL (32.0-37.0); MCV 90.1 FL (80.0-97.0); Mean Platelet Volume 10.3 FL (9.5-12.2); NRBC Per 100 WBC 0 X 10*3/uL (0.00-0.01); Platelet Count 256 X 10*3/uL (140-440); RBC 4.55 X 10*6/uL (4.10-5.20); RDW 13.8 % (11.5-14.5); WBC 10.96 X 10*3/uL (4.50-10.00)
[2023-06-18 16:35] LABS: BUN/Creat Ratio 28.14 Ratio (12.00-20.00); Blood Urea Nitrogen 19.7 mg/dL (9.0-27.0); Calcium 9.9 mg/dL (8.7-10.3); Carbon Dioxide 22.6 mmol/L (21.6-31.8); Chloride 106 mmol/L (96-109); Glucose 86 mg/dL (70-110); Potassium 4.3 mmol/L (3.5-5.5); Sodium 142 mmol/L (135-145)
[2023-06-18 17:11] LABS: Appearance,Urine Clear (Clear); Bilirubin,Urine Negative (Negative); Blood,Urine Moderate (Negative); Color,Urine Yellow (Yellow); Ketones,Urine Negative (Negative); Nitrite,Urine Negative (Negative); PH, Urine 5.5; Specific Gravity,Urine 1.022 (1.001-1.030)
[2023-06-18 18:07] LABS: Bacteria,Urine 1+ (None Seen); Calcium Oxalate Crystals,Urine Present (None Seen)
== END | disposition home or self-care (01) ==
LOC: LABPAT 10:57
PROVIDERS: ATTEND Orthopaedic Surgery Orthopaedic Surgery of the Spine
DX: Z01.818 Encounter for other preprocedural examination (principal); M48.56XA Collapsed vertebra, not elsewhere classified, lumbar region, initial encounter for fracture; X58.XXXA Exposure to other specified factors, initial encounter
CPT/HCPCS: 36415; 71046; 80048; 81001; 85027; 85610; 85730; 93005

== ENCOUNTER → 2023-07-15 | Outpatient (CLI) | payer MEDICARE, OTHER ==
[2023-07-15 14:28] LABS: Partial Thromboplastin Time 22.3 sec (22.0-30.0)
[2023-07-15 18:26] LABS: Basophils # (A) 0.01 X 10*3/uL (0.00-0.10); Basophils % (A) 0.1 %; Eosinophils # (A) 0.05 X 10*3/uL (0.04-0.35); Eosinophils % (A) 0.7 %; HCT 39.5 % (37.2-46.3); HGB 13.1 g/dL (12.0-15.0); Lymphocytes # (A) 2.33 X 10*3/uL (0.90-5.00); Lymphocytes % (A) 34.9 %; MCH 30.3 pg (27.0-32.0); MCHC 33.2 g/dL (32.0-37.0); MCV 91.2 FL (80.0-97.0); Mean Platelet Volume 10.1 FL (9.5-12.2); Monocytes # (A) 0.43 X 10*3/uL (0.20-1.00); Monocytes % (A) 6.4 %; NRBC Per 100 WBC 0 X 10*3/uL (0.00-0.01); Neutrophils # (A) 3.83 X 10*3/uL (1.80-7.70); Neutrophils % (A) 57.6 %; Platelet Count 220 X 10*3/uL (140-440); RBC 4.33 X 10*6/uL (4.10-5.20); RDW 14.2 % (11.5-14.5); WBC 6.67 X 10*3/uL (4.50-10.00)
[2023-07-15 18:27] LABS: Blood Urea Nitrogen 22.4 mg/dL (9.0-27.0); Calcium 9.9 mg/dL (8.7-10.3); Carbon Dioxide 25.7 mmol/L (21.6-31.8); Chloride 104 mmol/L (96-109); Glucose 87 mg/dL (70-110); Potassium 4.1 mmol/L (3.5-5.5); Sodium 140 mmol/L (135-145)
[2023-07-15 20:35] LABS: Appearance,Urine Clear (Clear); Bilirubin,Urine Negative (Negative); Blood,Urine Moderate (Negative); Color,Urine Yellow (Yellow); Ketones,Urine Negative (Negative); Nitrite,Urine Negative (Negative); PH, Urine 6.5; Specific Gravity,Urine 1.024 (1.001-1.030)
[2023-07-15 21:24] LABS: Bacteria,Urine None Seen (None Seen)
[2023-07-15 21:41] LABS: Prothrombin Time 10.6 sec (10.0-12.5)
== END | disposition home or self-care (01) ==
LOC: LABPAT 13:01
PROVIDERS: ATTEND Orthopaedic Surgery Orthopaedic Surgery of the Spine
DX: Z01.812 Encounter for preprocedural laboratory examination (principal); M48.56XA Collapsed vertebra, not elsewhere classified, lumbar region, initial encounter for fracture
CPT/HCPCS: 36415; 80048; 81001; 85025; 85610; 85730

== ENCOUNTER → 2023-07-21 | Day surgery (SDC) | payer MEDICARE, OTHER ==
[2023-06-24 12:21] VITALS: BMI 23.8
[~2023-07-21] MED LIST changes: +BACLOFEN 10 MG TAB PO SCH; +BENZOCAINE/MENTHOL LOZENG 1 EACH LOZENGE MUCOUS MEM PRN; +BUPRENORPHINE HCL 750 MCG SUBLINGUAL SCH; +CYCLOBENZAPRINE 10 MG TAB PO PRN; +DEXAMETHASONE SOD PHOSPHATE 4 MG/ML 1 ML VIAL IV ONE; +ERGOCALCIFEROL 1,250 MCG (50,000 IU) CAPSULE PO SCH; +HYDROcodone/APAP 10-325MG 1 EACH TAB PO ONE; +HYDROcodone/APAP 10-325MG 1 EACH TAB PO PRN; +HYDROmorphone 0.5 MG/0.5 ML SYRINGE IVP PRN; +IOPAMIDOL M200 10 ML VIAL MISCELLANE ONE; +KETOROLAC 15 MG/ML 1 ML VIAL IVP PRN; +LACTATED RINGERS 1,000 ML IV SCH; +LIDOCAINE 1% INJ 10MG/ML (20 ML MDV) ONE; +LIDOCAINE 2%-EPI 1:100,000 20 ML VIAL SQ ONE; +MIDAZOLAM 2 MG/2 ML VIAL IV PRN; +MIDAZOLAM 2 MG/2 ML VIAL ONE; +ONDANSETRON 4 MG/2 ML VIAL IVP PRN; +PATIENT'S OWN (Linaclotide [Linzess] 145 MCG Capsule) PO SCH; +PROPOFOL 10 MG/ML 20 ML VIAL IV ONE; +SENNOSIDES-DOCUSATE SODIUM 1 EACH TAB PO SCH; +SODIUM CHLORIDE 0.9% 1,000 ML IV SCH; +SUCCINYLCHOLINE CHLORIDE 200 MG/10 ML VIAL IV ONE; +VORTIOXETINE HYDROBROMIDE 10 MG PO SCH; -ceFAZolin 1,000 MG in SODIUM CHLORIDE 0.9% IRRIGATIO 1,000 ML IRRIGATION PRN; +ePHEDrine 50 MG/ML 1 ML VIAL ONE; +fentaNYL (PF) 50 MCG/ML 2 ML AMP ONE
[2023-07-21] MEDS: LACTATED RINGERS 1,000 ML IV SCH ×2 (09:41→12:33)
--- NOTE | 2023-07-21 12:17 | P.OP ---
Date of Procedure: 07/21/23 Preoperative Diagnosis: L2 subacute compression fracture, thoracic or lumbar back pain, failed conservative treatment, history of prior lumbar sacral fusion Postoperative Diagnosis: Same Anesthesia: GETA Pathology: other (L2 vertebral body biopsy sent to pathology) Condition: stable Disposition: PACU Description of Procedure: BRIEF OPERATIVE NOTE Preoperative Diagnosis: L2 subacute compression fracture, thoracic or lumbar back pain, failed conservative treatment, history of prior lumbar sacral fusion Postoperative Diagnosis: Same Procedure: Kyphoplasty of L2 bilaterally Vertebral body biopsy of L2 Use of biplanar fluoroscopic guidance Surgeon: Dr. Donnelly Disabilities Services Officer: Carson Clemons is present throughout the entire the case persistence during positioning, dissection, exposure, visualization, and all crucial elements of the case as well as closure. Anesthesia: General anesthesia Dr. Rojas Estimated blood loss: Less than 10 mL Specimen: Vertebral body biopsy of L2 sent to pathology in formalin Complications: None apparent Components implanted: Bone cement wisam 9 mL with 60 mL on the left and 3 mL on the right Disposition: To recovery room in good stable condition. OPERATIVE INDICATIONS The patient has been having issues in their back ever since sustaining an injury. She was found have a new compression deformity at L2 above her prior fusion. We tried conservative treatment however she was not having any lasting benefit despite conservative care. She had significant pain with any mo bilization and ambulation and was having worsening symptoms despite conservative care. The compression deformity was obvious and correlated well with her pain. We tried a number of modalities of pain control activity magnification and bracing but she was not able tolerate these in terms of her pain and with continued to have significant issues. The patient has been through conservative treatment. They attempted conservative care with bracing however they're not having any benefit despite brace use. They continue to have significant pain and debility due to their fracture. We discussed various treatment options including surgery, and the patient wishes to proceed with surgery . She did not have any benefit with conservative treatment and she was interested in pursuing surgical intervention. I felt that surgery had very good likelihood of helping a significant portion of her pain symptoms at her back is stemming from the L2 fracture. We discussed the risk, patient's alternatives and benefits of surgery including but not limited to, risk of bleeding risk of infection, risk of need for further surgery, risk of decreased, loss of motion, loss of function, cement extravasation, nerve damage, paralysis, heart attack, blindness and . OPERATIVE SUMMARY After discussing all the risks, patient alternatives and benefits at length, the patient elected to proceed with surgical intervention, signed informed consent, and presented for their procedure. The patient was seen and examined in the preoperative holding area and the surgical site was marked. The patient was given antibiotics and brought to the operating room. The patient was sedated and intubated by anesthesia in standard fashion. The patient was positioned on to the operating room table in a prone position on the appropriate well-padded and well molded bilateral chest rolls. We were careful to pad any bony prominences and pressure points. We were careful to maintain the patient's cervical spine and good neutral alignment and position throughout. We used 2 C-arm machines to establish biplanar fluoroscopic guidance in AP and lateral positions. We were able to localize the fractures appropriately at L2. The patient was prepped and draped in a normal standard fashion. An appropriate timeout and keystone protocol performed. We were able to proceed with the surgery. The local wound area was infiltrated with local anesthetic. An incision was made over the lateral aspect of the pedicle over the appropriate levels with a small 2 mm stab incision. Intraoperative fluoroscopy was taken which showed a marker at the appropriate level. With the appropriate level positively confirmed, I was able to position a sharp trocar over the lateral aspect of the pedicle. As able to advance the trocar into the pedicle and into the posterior aspect of vertebral body of L2 being careful to avoid penetration cephalad caudad or medially. The trocar was placed appropriately into the posterior aspect of vertebral body at the appropriate levels of L2 at the bilateral pedicles. This was confirmed with C-arm guidance. With the trocars intact I was then able to take a bone biopsy with a biopsy punch or a bony drill. The biopsy specimen from L2 vertebral body was passed off to be sent to pathology in formalin. I was then able to place the kyphoplasty balloon within the vertebral body of L2. The position was checked on C-arm. I was able to inflate the balloon under low pressure and visualization with C-arm. The balloon was well enclosed within the vertebral body. The cement was prepared. With the cement at appropriate working condition the balloons were deflated and removed. I was able to place bony cement with trocar with the cement delivery device under low pressure. It had good fill within the vertebral body from the bilateral trochars with 6 mL going into the left and 3 mL going into the right. There is no evidence of any extravasation of the cement posteriorly toward the canal. The cement was well contained at the appropriate levels. The cement was allowed to cure appropriately. The trochars removed and final images were taken on C-arm. This showed the cement at the appropriate levels of L2. We were able to proceed with closure. The wound was cleaned and dried and dressed with the appropriate dressing. The drapes were broken down. The patient was gently rolled back onto their hospital bed being careful to maintain their cervical spine and good neutral alignment and position. They were woken up by anesthesia, extubated, and brought to the recovery room in good stable condition. The patient will be admitted to the hospital for observation and for appropriate postoperative care, medical management and monitoring. We will continue to follow them closely about the postoperative course.
[2023-07-21 12:41] VITALS: TEMP 97
--- NOTE | 2023-07-21 14:01 | FL ---
Fluoroscopy INDICATION: Pain FINDINGS: Fluoroscopy time: 43 seconds. Total dose area product (DAP) in uGy*m?, mGy*cm? (or similar): 9.1898 Images obtained: 0. IMPRESSION: 1. Documentation of fluoroscopy.
[2023-07-21 14:26] VITALS: BP 156/85; PULSE 83; RESP 14
--- NOTE | 2023-07-21 18:57 | XR ---
Fluoroscopy INDICATION: Pain FINDINGS: Fluoroscopy time: 43 seconds. Total dose area product (DAP) in uGy*m?, mGy*cm? (or similar): 9.1 890 Images obtained: 6. IMPRESSION: 1. Documentation of fluoroscopy.
== END | disposition home or self-care (01) ==
LOC: OR 08:32
PROVIDERS: ATTEND Orthopaedic Surgery Orthopaedic Surgery of the Spine
DX: M48.54XA Collapsed vertebra, not elsewhere classified, thoracic region, initial encounter for fracture (principal); I10 Essential (primary) hypertension; F32.A Depression, unspecified; K75.9 Inflammatory liver disease, unspecified; F17.210 Nicotine dependence, cigarettes, uncomplicated; Z88.5 Allergy status to narcotic agent; Z88.6 Allergy status to analgesic agent; Z79.899 Other long term (current) drug therapy
CPT/HCPCS: 22514; 20220; 88307; 88311; 72100; C1713; J2250; J0330; J0690; J2405; J2001; J3010; J2704; Q9966

== ENCOUNTER → 2024-03-11 | Outpatient (CLI) | payer MEDICARE ==
--- NOTE | 2024-04-06 08:49 | MM ---
Reason for Exam: Screening (asymptomatic). Last mammogram was performed 3 year(s) and 3 month(s) ago. Patient History: Menarche at age 13. First Full-Term at age 19. Right ovary removed at age 34. Hysterectomy at age 34. Postmenopausal. Hormonal Contraceptives for 5 years from age 20 until age 25. Maternal grandmother had breast cancer, age 60. Maternal aunt had breast cancer, age 54. Maternal aunt had breast cancer, age 50. Risk Values: Judy 5 year model risk: 1.2%. NCI Lifetime model risk: 4.0%. Prior Study Comparison: 04/25/2016 Right Diagnostic Mammogram, [facility]. 12/05/2016 Right Diagnostic Mammogram, [facility]. 12/04/2020 Bilateral Diagnostic Mammogram, [facility]. Tissue Density: There are scattered areas of fibroglandular density. Findings: Analyzed By CAD. Right breast: There is no suspicious group of microcalcifications or new suspicious mass. Left breast: There is no suspicious group of microcalcifications or new suspicious mass. Overall Assessment: Negative, BI-RAD 1 Management: Screening Mammogram of both breasts in [address] [facility] will attempt to contact patient to return for supplemental views and ultrasound if indicated. Patient should continue monthly self-breast exams. A clinical breast exam by your physician is recommended on an annual basis. This exam should not preclude additional follow-up of suspicious palpable abnormalities. Note on Judy scores and lifetime risk: 1. A Judy score greater than 3% is considered moderate risk. If this is the case, consider specialist referral to assess eligibility for a risk reducing agent. 2. If overall lifetime risk for the development of breast cancer is 20% or higher, the patient may qualify for future screening with alternating mammogram and breast MRI. Electronically signed and approved by: Eliezer Tsai DO
== END | disposition home or self-care (01) ==
LOC: RADBDWWP 12:00
PROVIDERS: ATTEND Family Medicine Addiction Medicine
DX: Z12.31 Encounter for screening mammogram for malignant neoplasm of breast (principal); R92.323 Mammographic fibroglandular density, bilateral breasts; Z78.0 Asymptomatic menopausal state; Z80.3 Family history of malignant neoplasm of breast; Z90.722 Acquired absence of ovaries, bilateral
CPT/HCPCS: 77063; 77067